=== PATIENT | male | born 1945 | race Caucasian/White ===

== ENCOUNTER 2024-11-24 14:43 | Inpatient (IN) | payer MEDICARE, OTHER ==
[~2024-11-24] VITALS: Ht 175.3 cm; Wt 70.6 kg
[2024-11-24] MEDS ORDERED: 0.9% SODIUM CHLORIDE 10 ML SYRINGE IVP PRN (15:00)
[2024-11-24 15:09] LABS: BASOPHILS % (AUTO) 0.4 % (0.0-2.0); EOSINOPHILS % (AUTO) 0 % (1.0-6.0); HEMATOCRIT 36.8 % (41-53); HEMOGLOBIN 11.8 g/dL (13.5-17.5); LYMPHOCYTES # (AUTO) 1.5 K/uL (1.0-4.8); LYMPHOCYTES % (AUTO) 8.6 % (22.0-44.0); MEAN CORPUSCULAR HGB CONC 32.1 G/dL (31.0-37.0); MEAN CORPUSCULAR VOLUME 91 fL (80-100); MONOCYTES # (AUTO) 1.6 K/uL (0.1-1.0); MONOCYTES % (AUTO) 8.9 % (2.0-9.0); NEUTROPHILS # (AUTO) 14.3 K/uL (1.8-7.7); NEUTROPHILS % (AUTO) 82.1 % (40.0-70.0); PLATELET COUNT (AUTO) 297 K/uL (150-450); RED BLOOD CELL COUNT(AUTO) 4.06 MIL/uL (4.50-5.90); RED CELL DISTRIBUTION WIDTH 14.9 % (11.5-14.5); WHITE BLOOD COUNT (AUTO) 17.5 K/uL (4.5-11.0)
[2024-11-24 15:13] LABS: ANION GAP 12 mmol/L (8-16); CARBON DIOXIDE 23 mmol/L (22-29); CHLORIDE 114 mmol/L (98-107); CREATININE 2.13 mg/dL (0.60-1.30); GLOMERULAR FILTR. RATE CALC 30 mL/min (>60); GLUCOSE,RANDOM 81 mg/dL (70-110); POTASSIUM 4.2 mmol/L (3.5-5.1); SODIUM SERUM 149 mmol/L (136-145); UREA NITROGEN, BLOOD 58 mg/dL (7-18)
[2024-11-24 15:15] VITALS: PULSE 87; RESP 16; O2SAT 0
[2024-11-24 15:20] LABS: ALBUMIN 2.8 g/dL (3.4-5.0); BILIRUBIN,DIRECT 0.2 mg/dL (0.00-0.20); BILIRUBIN,TOTAL 0.5 mg/dL (0.1-1.0); TOTAL PROTEIN, SERUM 6.8 g/dL (6.4-8.2)
[2024-11-24 15:21] LABS: ALCOHOL, BLOOD (SERUM) < 3 mg/dL (0-10)
[2024-11-24 15:24] LABS: PROTHROMBIN TIME 10.9 SEC (9.4-11.6)
[2024-11-24 15:26] LABS: LACTIC ACID 2.3 mmol/L (0.4-2.0)
[2024-11-24 15:33] LABS: CREATINE KINASE, TOTAL ONLY 2935 U/L (39-308)
[2024-11-24 15:34] LABS: ABG BASE EXCESS -10.9 mmol/L (-2.0-3.0); ABG CARBOXYHEMOGLOBIN 0.4 % (0.5-1.5); ABG HCO3 16.4 mmol/L (21.0-28.0); ABG OXYGEN CONTENT 13.1 mL/dL (15.0-23.0); ABG PCO2 32 mmHg (32.0-48.0); ABG PH 7.302 (7.350-7.450); ABG TOTAL HEMOGLOBIN 11.2 G/dL (13.5-17.5); PO2, ARTERIAL BG 56.1 mmHg (83.0-108.0); SOURCE, BLOOD GAS ARTERIAL; TEMPERATURE, FAHRENHEIT, BG 98.9 FAHREN (96.0-98.6)
[2024-11-24 15:35] LABS: B-TYPE NATRIURETIC PEPTIDE 854 pg/mL (0-100); TROPONIN I-HIGH SENSITIVITY Greater than 25000 ng/L (<76)
[2024-11-24 15:36] LABS: INFLUENZA TYPE A NEGATIVE FOR TYPE A (NEGATIVE); INFLUENZA TYPE B NEGATIVE FOR TYPE B (NEGATIVE)
[2024-11-24 15:36] LABS: ABG A-A DIFF O2 624.3 mmHg (10-20.0); ABG OXYGEN SATURATION 84.2 % (94.0-98.0); ALLEN TEST, BLOOD GAS Positive; O2 DEVICE,BLOOD GAS VENTILATOR (ROOM AIR); SITE, BLOOD GAS RT RADIAL; VT, ABG 420 ml
[2024-11-24 15:37] LABS: PEEP,BG 5 cm H2O
[2024-11-24] MEDS: CefTRIAXone 1 GM/DEXTROSE 50 ML IV ONE (15:39)
[2024-11-24] MEDS: AZITHROMYCIN 500 MG/NS 250 ML IV ONE (15:39)
[2024-11-24] MEDS: SODIUM CHLORIDE 0.9% 1,000 ML IV ONE ×2 (15:40→15:41)
[2024-11-24 16:09] LABS: COVID AG,FIA SOURCE NASAL SWAB
[2024-11-24 16:15] LABS: APPEARANCE,URINE CLEAR (CLEAR); BILIRUBIN,URINE NEGATIVE (NEGATIVE); COLOR,URINE LIGHT YELLOW (YELLOW); GLUCOSE, URINE (UA) NEGATIVE (NEGATIVE); KETONES,URINE NEGATIVE (NEGATIVE); LEUKOCYTE ESTERASE ,URINE NEGATIVE (NEGATIVE); NITRATE,URINE NEGATIVE (NEGATIVE); OCCULT BLOOD,URINE NEGATIVE (NEGATIVE); PH,URINE 5.5 (5.0-8.0); PH,URINE DRUG SCREEN 5.5 (5.0-8.0); PROTEIN,URINE 30-70 mg/dL (NEGATIVE); SPECIFIC GRAVITIY, URINE 1.016 (1.003-1.030); UROBILINOGEN,URINE <=1.0 mg/dL (<=1.0)
[2024-11-24 16:28] LABS: ALCOHOL, URINE DRUG SCREEN NEGATIVE (NEGATIVE); AMPHET/METH SCREEN,URINE NEGATIVE (NEGATIVE); BARBITURATE SCREEN, URINE NEGATIVE (NEGATIVE); BENZODIAZEPINES SCREEN,URINE NEGATIVE (NEGATIVE); CANNABINOID SCREEN,URINE NEGATIVE (NEGATIVE); COCAINE SCREEN,URINE NEGATIVE (NEGATIVE); METHADONE SCREEN, URINE NEGATIVE (NEGATIVE); OPIATE SCREEN,URINE NEGATIVE (NEGATIVE); PHENCYCLIDINE SCREEN,URINE NEGATIVE (NEGATIVE)
[2024-11-24] MEDS: PROPOFOL 1000 MG/ISO-OSM 100 ML IV PRN (16:31)
[2024-11-24] MEDS: PIPERACILLIN/TAZO 3.375 GM/D5W 50 ML IV ONE (16:33)
[2024-11-24 16:47] LABS: SARS-COV2 (COVID) ANTIGEN,FIA Negative (Negative)
[2024-11-24] MEDS ORDERED: 0.9% SODIUM CHLORIDE 5 ML NEB SOLUTION NEB ONE (17:19)
[2024-11-24] MEDS: IPRATROPIUM BROMIDE 0.5 MG/2.5 ML NEB SOLUTION NEB ONE (17:21)
[2024-11-24] MEDS: ALBUTEROL SULFATE 2.5 MG/0.5 ML 5 ML NEB SOLUTION NEB ONE (17:21)
[2024-11-24 17:22] VITALS: PULSE 77; RESP 16; O2SAT 93
[2024-11-24] MEDS: NOREPINEPHRINE 8 MG/0.9 % NACL 250 ML IV PRN (17:25)
[2024-11-24] MEDS: ASPIRIN 300 MG RECTAL SUPPOSITORY PR ONE (17:35)
[2024-11-24] MEDS ORDERED: HEPARIN SODIUM,PORCINE 5,000 UNITS/ML VIAL IVP PRN ×2 (18:00)
[2024-11-24] MEDS ORDERED: HEPARIN SODIUM,PORCINE 5,000 UNITS/ML VIAL IVP ONE (18:00)
[2024-11-24] MEDS: HEPARIN SODIUM,PORCINE 5,000 UNITS/ML VIAL IVP ONE (18:21)
[2024-11-24] MEDS: HEPARIN SODIUM 25000 UNITS/D5W 250 ML IV PRN (18:23)
[2024-11-24 18:45] VITALS: PULSE 72; RESP 16; O2SAT 99
[2024-11-24 18:59] VITALS: PULSE 72; RESP 16; O2SAT 100
[2024-11-24 21:42] VITALS: PULSE 72; RESP 16; O2SAT 100
[2024-11-24 22:30] VITALS: BP 114/55; PULSE 78; RESP 23; TEMP 94.6; O2SAT 97
[2024-11-24] MEDS: ETHYL ALCOHOL 62% ANTISEPTIC NASAL SANITIZER 0.6 ML AMPUL NASAL SCH (23:32)
[2024-11-25] VITALS (14 sets, daily range): BP systolic 93–135; BP diastolic 33–84; PULSE 72–88; RESP 20–35; TEMP 95.1–99.9; O2SAT 96–99
[2024-11-25] MEDS ORDERED: HEPARIN SODIUM,PORCINE 5,000 UNITS/ML VIAL IVP PRN (03:15)
[2024-11-25] MEDS: NOREPINEPHRINE 8 MG/0.9 % NACL 250 ML IV PRN (05:31)
[2024-11-25] MEDS: PROPOFOL 1000 MG/ISO-OSM 100 ML IV PRN (05:40)
[2024-11-25 06:29] LABS: BASOPHILS % (AUTO) 0.1 % (0.0-2.0); EOSINOPHILS % (AUTO) 0 % (1.0-6.0); HEMATOCRIT 38.2 % (41-53); HEMOGLOBIN 12.4 g/dL (13.5-17.5); LYMPHOCYTES # (AUTO) 1.2 K/uL (1.0-4.8); LYMPHOCYTES % (AUTO) 6.5 % (22.0-44.0); MEAN CORPUSCULAR HEMOGLOBIN 29.8 pg (26.0-34.0); MEAN CORPUSCULAR HGB CONC 32.5 G/dL (31.0-37.0); MEAN CORPUSCULAR VOLUME 92 fL (80-100); MONOCYTES # (AUTO) 1.5 K/uL (0.1-1.0); MONOCYTES % (AUTO) 8.1 % (2.0-9.0); NEUTROPHILS # (AUTO) 15.4 K/uL (1.8-7.7); PLATELET COUNT (AUTO) 323 K/uL (150-450); RED BLOOD CELL COUNT(AUTO) 4.18 MIL/uL (4.50-5.90); RED CELL DISTRIBUTION WIDTH 15.5 % (11.5-14.5); WHITE BLOOD COUNT (AUTO) 18.1 K/uL (4.5-11.0)
[2024-11-25 06:43] LABS: NEUTROPHILS % (AUTO) 85.3 % (40.0-70.0)
[2024-11-25 07:24] LABS: TROPONIN I-HIGH SENSITIVITY Greater than 25000 ng/L (<76)
[2024-11-25 09:24] LABS: CALCIUM, TOTAL 8.3 mg/dL (8.8-10.5); CREATININE 2.73 mg/dL (0.60-1.30); POTASSIUM 4.3 mmol/L (3.5-5.1)
[2024-11-25] MEDS ORDERED: SODIUM CHLORIDE 0.9% 500 ML IV ONE (09:28)
[2024-11-25] MEDS: HEPARIN SODIUM 25000 UNITS/D5W 250 ML IV PRN (09:42)
[2024-11-25] MEDS: FentaNYL CIT 1000MCG/0.9% NACL 100 ML IV PRN (09:51)
[2024-11-25] MEDS: *CLINICAL-CEFEPIME DOSING CLINICAL ONE (13:29)
[2024-11-25] MEDS ORDERED: VANCOMYCIN HCL 1 GM/D5% WATER 200 ML IV PRN (14:15)
[2024-11-25] MEDS ORDERED: SODIUM CHLORIDE 0.9% 250 ML IV ONE (16:15)
[2024-11-25] MEDS: VANCOMYCIN HCL 1 GM/D5% WATER 200 ML IV ONE (16:21)
[2024-11-25] MEDS: CEFEPIME HCL 1 GM in DEXTROSE 5%-WATER 50 ML IV SCH (16:21)
[2024-11-25] MEDS ORDERED: CLOP75TA60 PO (17:58)
[2024-11-25] MEDS ORDERED: ACET-2247 PO (17:58)
[2024-11-25] MEDS ORDERED: AMLO-258 PO (17:58)
[2024-11-25] MEDS ORDERED: LOPE-232 PO (17:58)
[2024-11-25] MEDS ORDERED: ATOR40TA28 PO (17:58)
[2024-11-25] MEDS: DEXTROSE 5%-WATER 1,000 ML IV SCH (18:28)
[2024-11-25] MEDS: ATORVASTATIN CALCIUM 40 MG TABLET PO SCH (20:48)
[2024-11-25] MEDS: HEPARIN SODIUM,PORCINE 5,000 UNITS/ML VIAL IVP PRN (23:53)
[2024-11-26] VITALS (14 sets, daily range): BP systolic 113–127; BP diastolic 43–57; PULSE 57–86; RESP 17–24; TEMP 97.3–101.2; O2SAT 45–99
[2024-11-26 06:59] LABS: BASOPHILS % (AUTO) 0.3 % (0.0-2.0); EOSINOPHILS % (AUTO) 0.9 % (1.0-6.0); HEMOGLOBIN 10.2 g/dL (13.5-17.5); LYMPHOCYTES # (AUTO) 1.7 K/uL (1.0-4.8); LYMPHOCYTES % (AUTO) 10.1 % (22.0-44.0); MEAN CORPUSCULAR HEMOGLOBIN 29.7 pg (26.0-34.0); MEAN CORPUSCULAR VOLUME 90 fL (80-100); MONOCYTES # (AUTO) 1.1 K/uL (0.1-1.0); MONOCYTES % (AUTO) 6.7 % (2.0-9.0); PLATELET COUNT (AUTO) 274 K/uL (150-450); RED BLOOD CELL COUNT(AUTO) 3.44 MIL/uL (4.50-5.90); RED CELL DISTRIBUTION WIDTH 15.7 % (11.5-14.5)
[2024-11-26 07:06] LABS: CALCIUM, TOTAL 7.8 mg/dL (8.8-10.5); CREATININE 2.84 mg/dL (0.60-1.30); POTASSIUM 4.3 mmol/L (3.5-5.1)
[2024-11-26 07:19] LABS: ALBUMIN 1.8 g/dL (3.4-5.0); BILIRUBIN,TOTAL 0.3 mg/dL (0.1-1.0); TOTAL PROTEIN, SERUM 5.6 g/dL (6.4-8.2)
[2024-11-26 07:54] LABS: TROPONIN I-HIGH SENSITIVITY Greater than 25000 ng/L (<76)
[2024-11-26] MEDS: PIPERACILLIN SODIUM/TAZOBACTAM 2.25 GM in DEXTROSE 5%-WATER 50 ML IV SCH (10:00)
[2024-11-26 10:03] LABS: ABG CARBOXYHEMOGLOBIN 0.3 % (0.5-1.5); ABG HCO3 16.4 mmol/L (21.0-28.0); ABG METHEMOGLOBIN 0.3 % (0.0-1.5); ABG OXYGEN CONTENT 14.4 mL/dL (15.0-23.0); ABG OXYGEN SATURATION 95.4 % (94.0-98.0); ABG OXYHEMOGLOBIN 94.8 % (94.0-98.0); ABG PCO2 32 mmHg (32.0-48.0); ABG PH 7.305 (7.350-7.450); ABG TOTAL HEMOGLOBIN 10.7 G/dL (13.5-17.5); PO2, ARTERIAL BG 79.4 mmHg (83.0-108.0); SOURCE, BLOOD GAS ARTERIAL; TEMPERATURE, FAHRENHEIT, BG 97.9 FAHREN (96.0-98.6)
[2024-11-26 10:04] LABS: O2 DEVICE,BLOOD GAS VENTILATOR (ROOM AIR); PEEP,BG 5 cm H2O; SITE, BLOOD GAS ARTERIAL LINE; VT, ABG 420 ml
[2024-11-26] MEDS: FAMOTIDINE 20 MG/2 ML VIAL IVP SCH (11:00)
[2024-11-26 14:52] LABS: CREATININE,URINE RANDOM 58.7 mg/dL (30.0-125.0)
[2024-11-26] MEDS: ASPIRIN 81 MG CHEWABLE TABLET NG SCH (16:04)
[2024-11-26] MEDS: DOCUSATE SODIUM 100 MG/10 ML LIQUID UDCUP GT SCH (16:04)
[2024-11-26 17:44] LABS: INFLUENZA A-RTPCR,COMBO NEGATIVE (NEGATIVE); INFLUENZA B-RTPCR,COMBO NEGATIVE (NEGATIVE); RESPIRATORY SYNCYTIAL VRS-PCR NEGATIVE (NEGATIVE); SARS COVID19 RTPCR, COMBO NEGATIVE (NEGATIVE)
[2024-11-26 17:48] LABS: CALCIUM, TOTAL 7.6 mg/dL (8.8-10.5); CREATININE 2.66 mg/dL (0.60-1.30); PHOSPHORUS 4.6 mg/dL (2.5-4.9); POTASSIUM 4.2 mmol/L (3.5-5.1)
[2024-11-27] VITALS (16 sets, daily range): BP systolic 100–121; BP diastolic 36–52; PULSE 74–84; RESP 14–29; TEMP 97.5–99.5; O2SAT 77–100
[2024-11-27 06:20] LABS: ANION GAP 12 mmol/L (8-16); CALCIUM, TOTAL 7.9 mg/dL (8.8-10.5); CARBON DIOXIDE 19 mmol/L (22-29); CHLORIDE 110 mmol/L (98-107); CHOL/HDL RATIO 3.8 (4.2-7.3); CHOLESTEROL 75 mg/dL (131-200); CREATININE 2.65 mg/dL (0.60-1.30); GLOMERULAR FILTR. RATE CALC 23 mL/min (>60); GLUCOSE,RANDOM 135 mg/dL (70-110); HDL CHOLESTEROL 20 mg/dL (40-60); LDL CHOL (CALC.) 21 mg/dL (0-130); POTASSIUM 4.2 mmol/L (3.5-5.1); SODIUM SERUM 141 mmol/L (136-145); TRIGLYCERIDES 170 mg/dL (15-150); UREA NITROGEN, BLOOD 67 mg/dL (7-18)
[2024-11-27 06:23] LABS: BASOPHILS % (AUTO) 0.3 % (0.0-2.0); EOSINOPHILS % (AUTO) 2.3 % (1.0-6.0); HEMATOCRIT 27.3 % (41-53); HEMOGLOBIN 9.2 g/dL (13.5-17.5); LYMPHOCYTES # (AUTO) 1.7 K/uL (1.0-4.8); LYMPHOCYTES % (AUTO) 9.9 % (22.0-44.0); MEAN CORPUSCULAR HEMOGLOBIN 29.9 pg (26.0-34.0); MEAN CORPUSCULAR HGB CONC 33.6 G/dL (31.0-37.0); MEAN CORPUSCULAR VOLUME 89 fL (80-100); NEUTROPHILS # (AUTO) 13.7 K/uL (1.8-7.7); NEUTROPHILS % (AUTO) 81.5 % (40.0-70.0); PLATELET COUNT (AUTO) 238 K/uL (150-450); RED BLOOD CELL COUNT(AUTO) 3.08 MIL/uL (4.50-5.90); RED CELL DISTRIBUTION WIDTH 15.7 % (11.5-14.5); WHITE BLOOD COUNT (AUTO) 16.8 K/uL (4.5-11.0)
[2024-11-27 07:03] LABS: TROPONIN I-HIGH SENSITIVITY Greater than 25000 ng/L (<76)
[2024-11-27] MEDS ORDERED: PHENYLEPHRINE 200 MG/D5%-WATER 250 ML IV PRN (10:00)
[2024-11-27 11:06] LABS: ABG BASE EXCESS -10.2 mmol/L (-2.0-3.0); ABG CARBOXYHEMOGLOBIN 0.3 % (0.5-1.5); ABG METHEMOGLOBIN 0.3 % (0.0-1.5); ABG OXYGEN CONTENT 14.1 mL/dL (15.0-23.0); ABG OXYHEMOGLOBIN 98.4 % (94.0-98.0); ABG PCO2 33 mmHg (32.0-48.0); ABG PH 7.309 (7.350-7.450); ABG TOTAL HEMOGLOBIN 9.9 G/dL (13.5-17.5); PO2, ARTERIAL BG 165.9 mmHg (83.0-108.0); SITE, BLOOD GAS ARTERIAL LINE; SOURCE, BLOOD GAS ARTERIAL; TEMPERATURE, FAHRENHEIT, BG 97.5 FAHREN (96.0-98.6)
[2024-11-27 11:07] LABS: O2 DEVICE,BLOOD GAS VENTILATOR (ROOM AIR); PEEP,BG 5 cm H2O; VT, ABG 420 ml
[2024-11-27] MEDS: PANTOPRAZOLE SODIUM 40 MG/VIAL IVP ONE (13:43)
[2024-11-27] MEDS: LINEZOLID 600 MG/ISO-OSM 300 ML IV SCH (13:43)
[2024-11-27] MEDS: PANTOPRAZOLE SODIUM 80 MG in SODIUM CHLORIDE 0.9% 100 ML IV SCH (14:23)
[2024-11-27] MEDS ORDERED: SODIUM CHLORIDE 0.9% 500 ML IV ONE (14:43)
[2024-11-27] MEDS: CITRIC ACID/SODIUM CITRATE 30 ML SOLUTION UDCUP PO SCH (16:30)
[2024-11-27] MEDS ORDERED: 0.9% SODIUM CHLORIDE 5 ML NEB SOLUTION NEB ONE (19:09)
[2024-11-27] MEDS: ALBUTEROL SULFATE 2.5 MG/0.5 ML NEB SOLUTION NEB SCH (19:16)
[2024-11-27] MEDS: ACETYLCYSTEINE 10% 100 MG/ML 4 ML NEB SOLUTION NEB SCH (19:16)
[2024-11-27 20:19] LABS: HEMATOCRIT 27.1 % (41-53); HEMOGLOBIN 8.8 g/dL (13.5-17.5)
[2024-11-27] MEDS: TERBINAFINE HCL 1% 30 GM CREAM TP SCH (21:03)
[2024-11-28] VITALS (19 sets, daily range): BP systolic 116–138; BP diastolic 36–63; PULSE 70–87; RESP 15–25; TEMP 96.1–99.4; O2SAT 92–100
[2024-11-28 00:38] LABS: HEMATOCRIT 27.6 % (41-53)
[2024-11-28 06:05] LABS: BASOPHILS % (AUTO) 0.3 % (0.0-2.0); EOSINOPHILS % (AUTO) 2.8 % (1.0-6.0); HEMATOCRIT 26.8 % (41-53); HEMOGLOBIN 8.8 g/dL (13.5-17.5); LYMPHOCYTES # (AUTO) 1.4 K/uL (1.0-4.8); LYMPHOCYTES % (AUTO) 8.7 % (22.0-44.0); MEAN CORPUSCULAR HEMOGLOBIN 29.6 pg (26.0-34.0); MEAN CORPUSCULAR HGB CONC 33.1 G/dL (31.0-37.0); MEAN CORPUSCULAR VOLUME 90 fL (80-100); MONOCYTES % (AUTO) 6.5 % (2.0-9.0); NEUTROPHILS # (AUTO) 12.8 K/uL (1.8-7.7); NEUTROPHILS % (AUTO) 81.7 % (40.0-70.0); PLATELET COUNT (AUTO) 251 K/uL (150-450); RED BLOOD CELL COUNT(AUTO) 2.98 MIL/uL (4.50-5.90); RED CELL DISTRIBUTION WIDTH 15.8 % (11.5-14.5); WHITE BLOOD COUNT (AUTO) 15.6 K/uL (4.5-11.0)
[2024-11-28 06:12] LABS: CALCIUM, TOTAL 8.3 mg/dL (8.8-10.5); CREATININE 2.69 mg/dL (0.60-1.30); MAGNESIUM 2.3 mg/dL (1.80-2.40); POTASSIUM 4.1 mmol/L (3.5-5.1)
[2024-11-28 13:14] LABS: HEMATOCRIT 27.9 % (41-53); HEMOGLOBIN 9.1 g/dL (13.5-17.5)
[2024-11-29] VITALS (19 sets, daily range): BP systolic 106–132; BP diastolic 33–54; PULSE 71–98; RESP 13–28; TEMP 97.3–99.7; O2SAT 93–100
[2024-11-29 06:25] LABS: HEMATOCRIT 28.1 % (41-53); HEMOGLOBIN 9.2 g/dL (13.5-17.5); MEAN CORPUSCULAR HEMOGLOBIN 29.6 pg (26.0-34.0); MEAN CORPUSCULAR HGB CONC 32.8 G/dL (31.0-37.0); MEAN CORPUSCULAR VOLUME 90 fL (80-100); PLATELET COUNT (AUTO) 265 K/uL (150-450); RED BLOOD CELL COUNT(AUTO) 3.12 MIL/uL (4.50-5.90); RED CELL DISTRIBUTION WIDTH 15.8 % (11.5-14.5); WHITE BLOOD COUNT (AUTO) 14.7 K/uL (4.5-11.0)
[2024-11-29 06:30] LABS: CALCIUM, TOTAL 8.3 mg/dL (8.8-10.5); CREATININE 2.72 mg/dL (0.60-1.30); POTASSIUM 3.6 mmol/L (3.5-5.1)
[2024-11-29 07:57] LABS: TROPONIN I-HIGH SENSITIVITY Greater than 25000 ng/L (<76)
[2024-11-29 09:51] LABS: BAND NEUTROPHILS % (MANUAL) 6 % (0-5); EOSINOPHILS % (MANUAL) 2 % (1-6); LYMPHOCYTES % (MANUAL) 6 % (22-44); METAMYELOCYTES % 1 % (0-0); MONOCYTES % (MANUAL) 5 % (2-9); SEGMENTED NEUTROPHILS % 80 % (40-70); TOTAL CELLS COUNTED 100
[2024-11-29 09:52] LABS: RBC MORPHOLOGY COMMENT NORMAL RBC MORPH
[2024-11-29 10:03] LABS: SPECIMENTYPE,BODY FLUID PLEURAL; TOTAL VOLUME,BODY FLUID 750 mL
[2024-11-29 12:56] LABS: APPEARANCE,SPUN,BODY FLUID CLEAR (CLEAR); APPEARANCE,UNSPUN,BODY FLUID SLIGHTLY CLOUDY (CLEAR); COLOR,BODY FLUID YELLOW (LT YELLOW); WBC, BODY FLUID 600 /cu. mm.
[2024-11-29 13:01] LABS: BASOPHILS,BODY FLUID 0 %; EOSINOPHILS,BF (ANAL) 0 %; LYMPHOCYTES,BODY FLUID 11 %; MONOCYTES,BODY FLUID 0 %; NEUTROPHILS,BODY FLUID 79 %
[2024-11-29 13:02] LABS: COMMENT,BODY FLUID 10
[2024-11-29] MEDS ORDERED: DEXMEDETOMIDINE 400 MCG/NS 100 ML IV PRN (16:00)
[2024-11-29] MEDS ORDERED: 0.9% SODIUM CHLORIDE 5 ML NEB SOLUTION NEB ONE (19:39)
[2024-11-30] VITALS (16 sets, daily range): BP systolic 104–120; BP diastolic 32–54; PULSE 66–98; RESP 22–30; TEMP 96.8–99.3; O2SAT 88–100
[2024-11-30] MEDS ORDERED: 0.9% SODIUM CHLORIDE 5 ML NEB SOLUTION NEB ONE (01:12)
[2024-11-30 07:15] LABS: ALBUMIN 1.3 g/dL (3.4-5.0); BILIRUBIN,TOTAL 0.5 mg/dL (0.1-1.0); CALCIUM, TOTAL 8.3 mg/dL (8.8-10.5); CREATININE 2.77 mg/dL (0.60-1.30); POTASSIUM 3.4 mmol/L (3.5-5.1); TOTAL PROTEIN, SERUM 5.4 g/dL (6.4-8.2)
[2024-11-30 07:30] LABS: BASOPHILS % (AUTO) 0.3 % (0.0-2.0); EOSINOPHILS % (AUTO) 1.1 % (1.0-6.0); HEMATOCRIT 26.1 % (41-53); HEMOGLOBIN 8.6 g/dL (13.5-17.5); LYMPHOCYTES # (AUTO) 1.2 K/uL (1.0-4.8); LYMPHOCYTES % (AUTO) 7.2 % (22.0-44.0); MEAN CORPUSCULAR HEMOGLOBIN 29.5 pg (26.0-34.0); MEAN CORPUSCULAR VOLUME 89 fL (80-100); MONOCYTES # (AUTO) 1.6 K/uL (0.1-1.0); MONOCYTES % (AUTO) 9.6 % (2.0-9.0); NEUTROPHILS # (AUTO) 13.3 K/uL (1.8-7.7); NEUTROPHILS % (AUTO) 81.8 % (40.0-70.0); PLATELET COUNT (AUTO) 238 K/uL (150-450); RED BLOOD CELL COUNT(AUTO) 2.91 MIL/uL (4.50-5.90); RED CELL DISTRIBUTION WIDTH 15.8 % (11.5-14.5); WHITE BLOOD COUNT (AUTO) 16.3 K/uL (4.5-11.0)
[2024-11-30 10:29] LABS: ABG BASE EXCESS -6.7 mmol/L (-2.0-3.0); ABG CARBOXYHEMOGLOBIN 0.3 % (0.5-1.5); ABG HCO3 19.8 mmol/L (21.0-28.0); ABG METHEMOGLOBIN 0.3 % (0.0-1.5); ABG OXYGEN CONTENT 12.7 mL/dL (15.0-23.0); ABG OXYGEN SATURATION 95.5 % (94.0-98.0); ABG OXYHEMOGLOBIN 94.9 % (94.0-98.0); ABG PCO2 27 mmHg (32.0-48.0); ABG PH 7.439 (7.350-7.450); ABG TOTAL HEMOGLOBIN 9.4 G/dL (13.5-17.5); SOURCE, BLOOD GAS ARTERIAL; TEMPERATURE, FAHRENHEIT, BG 98.2 FAHREN (96.0-98.6)
[2024-11-30 10:30] LABS: O2 DEVICE,BLOOD GAS VENTILATOR (ROOM AIR); PEEP,BG 5 cm H2O; PRESSURE SUPPORT, BG 5 cm H2O; SITE, BLOOD GAS ARTERIAL LINE; SPONTANEOUS VT, BG 735 ml; VENT MODE, BG Press. Support Vent. (ROOM AIR)
[2024-11-30 14:07] LABS: TOTAL PROTEIN,BODY FLUID,REF 1.9 g/dL
[2024-11-30 14:07] LABS: LEGIONELLA PNEUMO AG URINE Negative (Negative)
[2024-11-30 15:07] LABS: S PNEUMO SOURCE Urine; STREP PNEUMONIAE AG URINE Negative (Negative)
[2024-11-30] MEDS ORDERED: MORPHINE SULFATE 2 MG/ML SYRINGE IVP ONE (18:00)
[2024-12-01] VITALS: BP 115/59; PULSE 99; RESP 23; TEMP 98.6; O2SAT 86
[2024-12-01] MEDS: MORPHINE SULFATE 2 MG/ML SYRINGE IVP PRN (01:27)
[2024-12-01 04:20] VITALS: BP 105/54; PULSE 92; RESP 22; TEMP 98.1; O2SAT 89
[2024-12-01 07:30] VITALS: BP 124/56; PULSE 92; RESP 23; TEMP 97.6; O2SAT 93
[2024-12-01 09:16] LABS: BASOPHILS % (AUTO) 0.3 % (0.0-2.0); EOSINOPHILS % (AUTO) 0.4 % (1.0-6.0); HEMATOCRIT 29.2 % (41-53); HEMOGLOBIN 9.4 g/dL (13.5-17.5); LYMPHOCYTES # (AUTO) 1.3 K/uL (1.0-4.8); LYMPHOCYTES % (AUTO) 7.9 % (22.0-44.0); MEAN CORPUSCULAR HEMOGLOBIN 28.9 pg (26.0-34.0); MEAN CORPUSCULAR HGB CONC 32.3 G/dL (31.0-37.0); MEAN CORPUSCULAR VOLUME 90 fL (80-100); MONOCYTES # (AUTO) 1.5 K/uL (0.1-1.0); MONOCYTES % (AUTO) 9.3 % (2.0-9.0); NEUTROPHILS # (AUTO) 13.7 K/uL (1.8-7.7); NEUTROPHILS % (AUTO) 82.1 % (40.0-70.0); PLATELET COUNT (AUTO) 326 K/uL (150-450); RED BLOOD CELL COUNT(AUTO) 3.27 MIL/uL (4.50-5.90); RED CELL DISTRIBUTION WIDTH 15.5 % (11.5-14.5); WHITE BLOOD COUNT (AUTO) 16.7 K/uL (4.5-11.0)
[2024-12-01 17:00] VITALS: BP 124/56; PULSE 96; RESP 23; TEMP 98.7; O2SAT 93
[2024-12-01 18:34] VITALS: BP 104/56; PULSE 74; RESP 20; TEMP 97.7; O2SAT 95
[2024-12-01 20:04] VITALS: BP 119/59; PULSE 92; RESP 18; TEMP 98.4; O2SAT 93
[2024-12-02 03:49] VITALS: BP 116/64; PULSE 78; RESP 18; TEMP 98.1; O2SAT 93
[2024-12-02 08:14] VITALS: BP 112/60; PULSE 88; RESP 18; TEMP 98; O2SAT 94
== END 2024-12-02 16:33 | disposition hospice, home (50) | DRG 870 ==
LOC: EMS 14:43 → EDH 20:00 → ICU 22:45 → 6S 12-01 04:00 → 4E 12-01 18:11
PROVIDERS: ADMIT Hospitalist; ATTEND Hospitalist
PROC: 0BH17EZ Insertion of Endotracheal Airway into Trachea, Via Natural or Artificial Opening (ICD-10-PCS; 2024-11-24)
PROC: 5A1955Z Respiratory Ventilation, Greater than 96 Consecutive Hours (ICD-10-PCS; 2024-11-24)
PROC: 05HM33Z Insertion of Infusion Device into Right Internal Jugular Vein, Percutaneous Approach (ICD-10-PCS; principal; 2024-11-25)
PROC: B543ZZA Ultrasonography of Right Jugular Veins, Guidance (ICD-10-PCS; 2024-11-25)
PROC: 0DJ08ZZ Inspection of Upper Intestinal Tract, Via Natural or Artificial Opening Endoscopic (ICD-10-PCS; 2024-11-28)
PROC: 0W993ZZ Drainage of Right Pleural Cavity, Percutaneous Approach (ICD-10-PCS; 2024-11-29)
DX: A41.9 Sepsis, unspecified organism (principal); E43 Unspecified severe protein-calorie malnutrition; I21.4 Non-ST elevation (NSTEMI) myocardial infarction; J69.0 Pneumonitis due to inhalation of food and vomit; J96.01 Acute respiratory failure with hypoxia; I50.23 Acute on chronic systolic (congestive) heart failure; R65.21 Severe sepsis with septic shock; N17.0 Acute kidney failure with tubular necrosis; K25.4 Chronic or unspecified gastric ulcer with hemorrhage; K26.4 Chronic or unspecified duodenal ulcer with hemorrhage; E87.0 Hyperosmolality and hypernatremia; I13.0 Hypertensive heart and chronic kidney disease with heart failure and stage 1 through stage 4 chronic kidney disease, or unspecified chronic kidney disease; E87.20 Acidosis, unspecified; J91.8 Pleural effusion in other conditions classified elsewhere; G93.40 Encephalopathy, unspecified; I48.91 Unspecified atrial fibrillation; Z20.822 Contact with and (suspected) exposure to COVID-19; E86.0 Dehydration; N18.9 Chronic kidney disease, unspecified; K29.70 Gastritis, unspecified, without bleeding; B35.3 Tinea pedis; K29.80 Duodenitis without bleeding; I70.201 Unspecified atherosclerosis of native arteries of extremities, right leg; Z51.5 Encounter for palliative care; Z66 Do not resuscitate; Z86.73 Personal history of transient ischemic attack (TIA), and cerebral infarction without residual deficits; Z99.3 Dependence on wheelchair; Z68.23 Body mass index [BMI] 23.0-23.9, adult
CPT/HCPCS: 0241U; 31500; 32555; 36600; 51702; 70450; 71045; 71250; 76770; 76942; 80048; 80053; 80061; 80076; 80307; 81003; 82271; 82465; 82550; 82570; 82805; 82945; 83605; 83615; 83735; 83880; 83986; 84100; 84145; 84156; 84157; 84300; 84484; 84540; 85007; 85014; 85018; 85025; 85027; 85610; 85730; 86850; 86900; 86901; 87015; 87040; 87070; 87075; 87081; 87101; 87186; 87205; 87206; 87449; 87804; 87899; 89051; 93005; 93306; 93970; 94002; 94003; 94640; 94644; 94668; 99285; G0238; G0378; G0480; J0456; J0692; J0696; J1644; J2020; J2270; J2370; J2470; J2543; J2704; J3010; J3370; J3490; J7040; J7050; J7060; 36415-L1; 36415-TC; J7613